=== PATIENT | male | born 1970 | race Caucasian/White ===

== ENCOUNTER 2018-09-29 08:58 | Emergency (ER) | payer OTHER ==
[2018-09-29] MEDS ORDERED: SODIUM CHLORIDE 0.9% 1,000 ML IV ONE ×2 (09:09→10:41)
[2018-09-29] MEDS ORDERED: DEXAMETHASONE 10 MG/ML VIAL IVP STA (09:09)
[2018-09-29] MEDS ORDERED: MECLIZINE 12.5 MG TABLET PO STA (09:09)
--- NOTE | 2018-09-29 09:11 | ED Physician Documentation ---
History of Present Illness - Stated complaint Stated Complaint: VERTIGO - Chief complaint Chief Complaint: Neuro - History obtained from History obtained from: Patient - History of Present Illness Timing: Today - Additonal information Additional information: 47-year-old male was getting ready for his usual day of work when he developed acute dizziness and nausea. He has drank some Crystal light when this happened and despite this he vomited everything that he drank. He did try to go to work noted at work that he was to the dizzy to work and has persistence of dizziness and nausea. He eventually called the ambulance. He was up feeling ill prior to this and denies any current illness. He does state that he last week had a URI which she feels has resolved completely. Review of Systems Constitutional: reports: Fatigue. denies: Fever, Chills Eyes: denies: Decreased vision Ears: denies: Ear pain Nose: denies: Rhinorrhea / runny nose, Congestion Throat: denies: Sore throat Cardiac: denies: Chest pain / pressure, Palpitations Respiratory: denies: Dyspnea, Cough GI: reports: Nausea, Vomiting. denies: Abdominal Pain : denies: Dysuria, Frequency Skin: denies: Rash, Lesions Musculoskeletal: denies: Neck pain, Back pain, Extremity pain Neurologic: reports: Other (dizziness). denies: Generalized weakness, Focal weakness, Numbness, Difficulty speaking, Headache, Head injury, LOC PD PAST MEDICAL HISTORY - Present Medications Home Medications: Ambulatory Orders Medication Instructions Recorded Confirmed Meclizine HCl [Motion Sickness 25 mg PO Q6HR PRN #20 tablet 09/29/18 Relief] - Allergies Allergies/Adverse Reactions: Allergies Allergy/AdvReac Type Severity Reaction Status Date / Time No Known Drug Allergies Allergy Verified 09/29/18 09:07 PD ED PE NORMAL - Vitals Vital signs reviewed: Yes (hypertensive ) - General General: Alert and oriented X 3, Well developed/nourished - HEENT HEENT: Atraumatic, PERRL, EOMI, Ears normal, Other (dry mucous membranes. There are 2 beats of nystagmus bilaterally to lateral gaze) - Neck Neck: Supple, no meningeal sign, No bony TTP - Cardiac Cardiac: RRR, No murmur - Respiratory Respiratory: No respiratory distress, Clear bilaterally - Abdomen Abdomen: Soft, Non tender - Back Back: No CVA TTP, No spinal TTP - Derm Derm: Normal color, Warm and dry, No rash - Extremities Extremities: No deformity, No edema - Neuro Neuro: Alert and oriented X 3, rn bone marrow transplant 2-12 intact, No motor deficit, No sensory deficit, Normal speech Eye Opening: Spontaneous Motor: Obeys Commands Verbal: Oriented GCS Score: 15 - Psych Psych: Normal mood, Normal affect Results - Vitals Vitals: Vital Signs - 24 hr 09/29/18 09/29/18 09:02 10:44 Temperature 35.8 C L Heart Rate 86 64 Respiratory 14 16 Rate Blood Pressure 135/89 H 131/69 H O2 Saturation 95 95 Oxygen O2 Source Room air - EKG (time done) 0909 Rate: Rate (enter#) (77) Rhythm: NSR Ischemia: Q waves Compare to prior EKG: Old EKG unavailable Computer interpretation: Agree with computer - Labs Labs: Laboratory Tests 09/29/18 09/29/18 09/29/18 09:19 09:19 09:19 WBC 10.9 H RBC 4.76 Hgb 13.6 L Hct 40.6 L MCV 85.3 MCH 28.6 MCHC 33.5 RDW 14.9 Plt Count 208 MPV 8.4 Neut # (Auto) 8.5 H Lymph # (Auto) 1.6 [place] # (Auto) 0.5 Eos # (Auto) 0.1 Baso # (Auto) 0.0 Absolute Nucleated RBC 0.00 Nucleated RBC % 0.0 Sodium 135 Potassium 3.8 Chloride 103 Carbon Dioxide 23 Anion Gap 9.0 BUN 13 Creatinine 0.8 Estimated GFR (MDRD) 103 Glucose 163 H Calcium 8.6 Total Bilirubin 0.9 AST 21 ALT 20 Alkaline Phosphatase 44 Troponin I < 0.04 Total Protein 7.0 Albumin 4.0 Globulin 3.0 Albumin/Globulin Ratio 1.3 Lipase 31 Urine Color Urine Clarity Urine pH Ur Specific [place] Urine Protein Urine Glucose (UA) Urine Ketones Urine Occult Blood Urine Nitrite Urine Bilirubin Urine Urobilinogen Ur Leukocyte Esterase Ur Microscopic Review Urine Culture Comments 09/29/18 12:15 WBC RBC Hgb Hct MCV MCH MCHC RDW Plt Count MPV Neut # (Auto) Lymph # (Auto) [place] # (Auto) Eos # (Auto) Baso # (Auto) Absolute Nucleated RBC Nucleated RBC % Sodium Potassium Chloride Carbon Dioxide Anion Gap BUN Creatinine Estimated GFR (MDRD) Glucose Calcium Total Bilirubin AST ALT Alkaline Phosphatase Troponin I Total Protein Albumin Globulin Albumin/Globulin Ratio Lipase Urine Color YELLOW Urine Clarity CLEAR Urine pH 6.5 Ur Specific [place] 1.015 Urine Protein NEGATIVE Urine Glucose (UA) NEGATIVE Urine Ketones 15 H Urine Occult Blood SMALL H Urine Nitrite NEGATIVE Urine Bilirubin NEGATIVE Urine Urobilinogen 0.2 (NORMAL) Ur Leukocyte Esterase NEGATIVE Ur Microscopic Review INDICATED Urine Culture Comments Not Reportable Procedures - IVC sono (time) 0908 Bedside IVC sono: IVC measures (cm) (0.87), IVC collapsed c insp (cm) (complete), Dehydration (est 1-2 liter deficit) PD MEDICAL DECISION MAKING - ED course Complexity details: reviewed results, re-evaluated patient, considered differential, d/w patient ED course: 47-year-old male with acute dizziness and lightheadedness is found to be dehydrated on interrogation of the inferior vena cava he also has nystagmus on lateral viewing consistent with acute labyrinthitis. Here in the emerge department IV is begun is given intravenous saline Decadron and oral meclizine. The patient has improvement with treatment. Departure - Departure Disposition: 01 Home, Self Care Clinical Impression: Dehydration Labyrinthitis Qualifiers: Laterality: bilateral Qualified Code(s): H83.03 - Labyrinthitis, bilateral Condition: Stable Instructions: ED Dehydration, ED Labyrinthitis Follow-Up: Servando Segura MD [Primary Care Provider] - Prescriptions: Meclizine HCl [Motion Sickness Relief] 25 mg PO Q6HR PRN #20 tablet PRN Reason: Dizziness
[2018-09-29 09:32] LABS: BASOPHILS % (AUTO) 0.4 %; EOSINOPHILS # (AUTO) 0.1 10^3/uL (0.0-0.7); HGB - HEMOGLOBIN 13.6 g/dL (14.0-18.0); LYMPHOCYTES # (AUTO) 1.6 10^3/uL (1.5-3.5); MEAN CORPUSCULAR HEMOGLOBIN 28.6 pg (27.0-31.0); MEAN CORPUSCULAR HGB CONC 33.5 g/dL (32.0-36.0); MEAN CORPUSCULAR VOLUME 85.3 fL (80.0-94.0); MEAN PLATELET VOLUME 8.4 fL (7.4-11.4); MONOCYTES # (AUTO) 0.5 10^3/uL (0.0-1.0); MONOCYTES % (AUTO) 4.9 %; NEUTROPHILS # (AUTO) 8.5 10^3/uL (1.5-6.6); NEUTROPHILS % (AUTO) 78.7 %; PLT - PLATELET COUNT 208 10^3/uL (130-450); RED BLOOD COUNT 4.76 10^6/uL (4.70-6.10); RED CELL DISTRIBUTION WIDTH 14.9 % (12.0-15.0); WHITE BLOOD COUNT 10.9 x10^3/uL (4.8-10.8)
[2018-09-29 09:41] LABS: ALBUMIN/GLOBULIN RATIO 1.3 (1.0-2.2); BILIRUBIN,TOTAL 0.9 mg/dL (0.2-1.0); CALCIUM 8.6 mg/dL (8.5-10.3); CREATININE 0.8 mg/dL (0.6-1.2)
[2018-09-29 12:27] LABS: BILIRUBIN,URINE NEGATIVE (NEGATIVE); GLUCOSE, URINE (UA) NEGATIVE (NEGATIVE); KETONES,URINE (UA) 15 mg/dL (NEGATIVE); LEUKOCYTE ESTERASE, URINE NEGATIVE (NEGATIVE); NITRITE,URINE NEGATIVE (NEGATIVE); OCCULT BLOOD,URINE SMALL (NEGATIVE); PH,URINE 6.5 PH (5.0-7.5); PROTEIN,URINE NEGATIVE (NEGATIVE); UROBILINOGEN,URINE 0.2 (NORMAL) E.U./dL (NORMAL)
[2018-09-29 12:31] LABS: CLARITY,URINE CLEAR (CLEAR)
[2018-09-29 12:43] LABS: BACTERIA,URINE None Seen /HPF (None Seen); RBC,URINE 0-5 /HPF (0-5); SQUAMOUS EPITHELIAL CELL,UR RARE Squamous (<= Few)
[2018-09-29 12:51] VITALS: BP 126/69
== END 2018-09-29 12:51 | disposition home or self-care (01) ==
LOC: EDUNIT# → ED 08:58
DX: E86.0 Dehydration (principal); H83.03 Labyrinthitis, bilateral; R94.31 Abnormal electrocardiogram [ECG] [EKG]
CPT/HCPCS: 36415; 80053; 81001; 83690; 84484; 85025; 93005; 96361; 96374; 99283; 99284; A9270; 81003; 87086

== ENCOUNTER 2023-10-20 20:23 | Emergency (ER) | payer OTHER ==
[2023-10-20 20:58] VITALS: BP 128/70; O2SAT 99
--- NOTE | 2023-10-20 21:25 | XRAY Report ---
PROCEDURE: Wrist 3+V RT INDICATIONS: PAIN+TENDERNESS + SWELLING R WRIST/HAND TECHNIQUE: 3 views of the wrist were acquired. COMPARISON: None. FINDINGS: Bones: No fractures or dislocations. No suspicious bony lesions. Soft tissues: No suspicious soft tissue calcifications or masses. IMPRESSION: No acute bony abnormality. If there is continued clinical concern for pathology or occult fracture, consider follow-up imaging w ith repeat radiographs in 10-14 days and possible advanced imaging (CT, MRI, bone scan) if symptoms p ersist. Reviewed by: Omid Lewis MD on 10/20/2023 9:24 PM PST Approved by: Omid Lewis MD on 10/20/2023 9:24 PM PST Station ID: [id number]
[2023-10-20] MEDS: ACETAMINOPHEN 325 MG TABLET PO STA (22:12)
[2023-10-20] MEDS: oxyCODONE 5 MG TABLET PO STA (22:13)
[2023-10-20] MEDS: ONDANSETRON ODT 4 MG TABLET TL STA (22:19)
--- NOTE | 2023-10-20 22:21 | ED Physician Documentation ---
History of Present Illness - Stated complaint Stated Complaint: R WRIST PX - Chief complaint Chief Complaint: Ext Problem - Additonal information Additional information: 52-year-old male presents emergency department for severe right wrist right hand pain. 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 He said that he got about 8 of them and he needed to do multiple repetitive arm movements to get the box printing machine operator knife to cut through the thick mats. He said there is no injuries while doing this. The next day he woke up feeling overall pretty fine and started exper iencing worsening right wrist pain throughout the day. Tonight when trying to wind down patient started experiencing severe worsening right wrist painTo the point where it caused him to vomit. He is taking Tylenol and ibuprofen nothing seems to be helping with the pain. He is not noticing increased right hand swelling and pain with flexion or extension of the wrist or the fingers and some numbness and tingling to the fingertips now. PD PAST MEDICAL HISTORY - Past Medical History Past Medical History: No Cardiovascular: None Respiratory: None Neuro: None Endocrine/Autoimmune: None GI: None : None HEENT: None Psych: None Musculoskeletal: None Derm: None - Past Surgical History Past Surgical History: Yes Ortho: ACL reconstruction - Present Medications Home Medications: Ambulatory Orders Medication Instructions Recorded Confirmed Oxycodone HCl/Acetaminophen 1 each PO Q6HR PRN #12 tablet 10/20/23 [Percocet 5-325 mg Tablet] predniSONE [Deltasone] 40 mg PO DAILY 4 Days #8 tablet 10/20/23 - Allergies Allergies/Adverse Reactions: Allergies Allergy/AdvReac Type Severity Reaction Status Date / Time No Known Drug Allergies Allergy Verified 10/20/23 20:46 - Social History Does the pt smoke?: Yes Smoking Status: Current every day smoker Does the pt drink ETOH?: Yes Does the pt have substance abuse?: No - Immunizations Immunizations are current?: Yes - POLST Patient has POLST: No PD ED PE NORMAL - Vitals Vital signs reviewed: Yes - General General: Alert and oriented X 3, Well developed/nourished, Other (pt wincing in pain) - Derm Derm: Normal color, Warm and dry, No rash - Extremities Extremities: No deformity, Other (Flexion and extension of the wrist tenderness with palpation to the volar and palmar aspect of the wrist. No popping clicking sensation of the wrist. No swelling of the right arm compartment.) - Psych Psych: Normal mood Results - Vitals Vitals: Vital Signs - 24 hr 10/20/23 20:40 Temperature 36.6 C Heart Rate 96 Respiratory 16 Rate Blood Pressure 128/70 O2 Saturation 99 Oxygen O2 Source Room air - Rads (name of study) Right hand x-ray Relevant Findings:: Final report received, EMP independent interpretation of test, Other (No acute fractures or dislocations or other abnormalities of the right hand.) PD Medical Decision Making - ED course ED course: Patient comes in with severe right hand/right wrist pain. X-rays do not reveal any fractures dislocation or other acute abnormalities or findings. I believe that the pain he is experiencing is from tendinitis from overuse injury. He was given Tylenol oxycodone ibuprofen here in the emergency department and reported that the pain had significantly improved. We also placed him in a Velcro splint to help with resting the right wrist as well as a steroid taper to help with the significant inflammation. He is told to rest it elevated ice it for the next 3 to 4 days and follow-up with primary care provider if pain does not continue to improve if it gets any worse to come back to the emergency department. At this time he is safe for discharge no further emergent workup indicated at this time. Departure - Departure Disposition: 01 Home, Self Care Clinical Impression: Wrist tendonitis, Overuse injury Condition: Good Instructions: Tendonitis and Tenosynovitis Prescriptions: Oxycodone HCl/Acetaminophen [Percocet 5-325 mg Tablet] 1 each PO Q6HR PRN #12 tablet PRN Reason: Pain >8 predniSONE [Deltasone] 40 mg PO DAILY 4 Days #8 tablet Comments: Thank you for trusting us with your care. I believe that the injury you are experiencing in your right hand is most likely due to an overuse injury. We are sending you home with some prednisone to help with the inflammation and swelling as well as some Percocet. Keep the wrist splint on to help with resting the tendon that is most likely overuse and inflamed right now. Apply ice 20 minutes at a time 1 hour off frequently throughout the day to help with inflammation and swelling make sure that you are keeping it elevated frequently. Follow-up with your primary care provider for further evaluation early next week to make sure that it is not getting worse. Make sure that you are taking her splint off a couple times at the day to do some gentle range of motion exercises to the wrist. I would stop wearing the splint after 3 days and then after that you can wear as needed for any pain and swelling. I am prescribing a short course of narcotic pain medication for you. These are potentially dangerous and addictive medications that should be used carefully. These medications may constipate you. Take an ioaf-vdq-bnfwuoi stool softener (docusate) twice daily with plenty of water while taking these medications. If you go 24 hours without a bowel movement, take jjqs-[id number]-fwatlvj miralax, per package instructions. Do not drink or drive while taking these medications. If you received narcotic or sedating medications while in the emergency department, do not drive for 24 hours. Store this medication in a safe, secure place and out of reach of children. It is a violation of federal law to give or sell this medication to another person or to use in a manner other than prescribed. The ED will not refill narcotic prescriptions, including prescriptions lost or stolen. To dispose of unwanted medications: 1. [facility] [address] in [place] has a medication drop box. They accept prescription medications (in pill form) Wednesday through Wednesday 9:00 a.m. to 5:00 p.m. 2. [facility] accepts prescription medications (in pill form only) for disposal year round. Call for more information. 3. Contact the [facility] for the next [facility] sponsored prescription drug collection event. , [phone], or [phone]; Note that many narcotic pain relievers also contain Tylenol/acetaminophen. Please ensure that your total dose of acetaminophen from all sources does not exceed 3 g (3000 mg) per day. Forms: PCP List Discharge Date/Time: 10/20/23 23:02
[2023-10-20] MEDS: predniSONE 20 MG TABLET PO STA (22:45)
[2023-10-20] MEDS: oxyCODONE/ACET 5/325 Prepack 4 PO STA (22:45)
== END 2023-10-20 23:02 | disposition home or self-care (01) ==
LOC: ED 20:23
DX: M77.8 Other enthesopathies, not elsewhere classified (principal); F17.200 Nicotine dependence, unspecified, uncomplicated
CPT/HCPCS: 73110; 99283; 99284; A9270; J7512; Q0162

== ENCOUNTER 2023-10-25 07:11 | Emergency (ER) | payer OTHER ==
--- NOTE | 2023-10-25 07:54 | ED Physician Documentation ---
PD HPI UPPER EXT INJURY - Stated complaint Stated Complaint: R HAND PX - Chief complaint Chief Complaint: Trauma Ext - History obtained from History obtained from: Patient - History of Present Illness Location: Right, Hand Type of injury: Other (cutting rubber floor tile w knife 8 days ago. Wednesday noted significant pain and swelling, seen here. Dx tendonitis. Gave percocet, prednisone. now pain much worse, swelling. pain especially 4th/5th fingers. occ tingling) Where injury occurred: Home Timing - onset: Other (pain for 5 days) Pain level max: 10 Pain level now: 7 Improved by: Rest Worsened by: Moving, Palpating Associated symptoms: Tingling Recently seen: Emergency Dept - Treatment prior to arrival Treatment prior to arrival: Taking percocet and prednisone, given brace. now so swollen brace won't fit PD PAST MEDICAL HISTORY - Past Medical History Cardiovascular: None Respiratory: None Neuro: None Endocrine/Autoimmune: None GI: None : None HEENT: None Psych: None Musculoskeletal: None Derm: None - Past Surgical History Past Surgical History: Yes Ortho: ACL reconstruction - Present Medications Home Medications: Ambulatory Orders Medication Instructions Recorded Confirmed Oxycodone HCl/Acetaminophen 1 each PO Q6HR PRN #12 tablet 10/20/23 10/25/23 [Percocet 5-325 mg Tablet] Oxycodone HCl/Acetaminophen 1 - 2 each PO Q6H PRN #14 tablet 10/25/23 [Percocet 5-325 mg Tablet] - Allergies Allergies/Adverse Reactions: Allergies Allergy/AdvReac Type Severity Reaction Status Date / Time No Known Drug Allergies Allergy Verified 10/20/23 20:46 - Social History Does the pt smoke?: Yes Smoking Status: Current every day smoker Does the pt drink ETOH?: Yes Does the pt have substance abuse?: No - Immunizations Immunizations are current?: Yes - POLST Patient has POLST: No PD ED PE NORMAL - General General: Alert and oriented X 3 - Cardiac Cardiac: RRR, No murmur - Respiratory Respiratory: No respiratory distress - Extremities Extremities: Other (right hand diffusely swollen. extremely ttp over carpal tunnel and prox ventral wrist. all fingers swollen. 4th/5th digits unable to extend, held in passive flexion. ttp along flexor side. CR<2 sec. sensation normal. only able to form claw with all fingers. thumb swollen but decent rom) Results - Vitals Vitals: Vital Signs - 24 hr 10/25/23 07:17 Temperature 36.6 C Heart Rate 101 H Respiratory 16 Rate Blood Pressure 169/87 H O2 Saturation 98 Oxygen O2 Source Room air PD Medical Decision Making - ED course Complexity details: considered differential, d/w digital marketing consultant ED course: Patient presents with worsening hand swelling in the setting of repetitive use injury. He was treated for presumed tendinitis and is more swollen. He was advised the other day to actually range his hand through range of motion which may be contributing to this worsening. Though he does have some pain with passive range of motion due to the swelling, he does not have erythema or significant tenderness to indicate an infectious flexor tenosynovitis. More likely an inflammatory etiology. He does not have numbness or delayed cap refill to indicate that this is a compartment syndrome. I discussed the case with Dr. Camacho, on for orthopedics here at [facility]. He recommended placing the patient in a volar splint with strict elevation precautions, he will see the patient as an outpatient in the next 48 to 72 hours which seems reasonable. P atient is quite reliable return to the emergency department if worse. Procedure: Volar splint application. Ortho-Glass was used to form a well-padded volar splint. He tolerated this well would be splinted in a neutral position. He has rigged a william system at home to do strict elevation of his hand. I counseled him that just above the heart is enough. He will use the splint without removing it and follow-up with Ortho this week. I believe he will get better with aggressive rest and elevation. - Consults Consults: Discussed case with (Dr. Camacho, ortho surgery) Departure - Departure Clinical Impression: Tenosynovitis of right hand Condition: Good Instructions: ED Splint Care Fiberglass, Compartment Syndrome Follow-Up: Gael Camacho MD [Provider Admit Priv/Credential] - Within 3 Days ( ED lily bowman, discussed with Dr. Barbosa at time of his presentation) Prescriptions: Oxycodone HCl/Acetaminophen [Percocet 5-325 mg Tablet] 1 - 2 each PO Q6H PRN #14 tablet PRN Reason: pain Comments: Call orthopedics Dr. Camacho, to be seen in the next 2 to 3 days. Strict elevation of right hand. Hrnv-ckv-sadulmy ibuprofen. Take Percocet for pain. Return to ER increasing pain numbness tingling any concerns. Forms: PCP List
[2023-10-25] MEDS: oxyCODONE 5 MG TABLET PO STA (08:17)
[2023-10-25 09:32] VITALS: BP 152/84; O2SAT 100
== END 2023-10-25 09:30 | disposition home or self-care (01) ==
LOC: ED 07:11
DX: M65.9 Synovitis and tenosynovitis, unspecified (principal); X50.3XXA Overexertion from repetitive movements, initial encounter; Y93.H3 Activity, building and construction; Y92.009 Unspecified place in unspecified non-institutional (private) residence as the place of occurrence of the external cause; F17.200 Nicotine dependence, unspecified, uncomplicated
CPT/HCPCS: 99282; 99284; A9270

== ENCOUNTER 2023-10-28 08:00 | Outpatient (CLI) | payer OTHER ==
--- NOTE | 2023-10-28 13:48 | XRAY Report ---
PROCEDURE: Hand 3 View RT INDICATIONS: RIGHT HAND PAIN TECHNIQUE: 3 views of the hand acquired. COMPARISON: Right wrist radiographs 10/20/2023. FINDINGS: Bones: No acute fractures or dislocations. No suspicious bony lesions. Soft tissues: No suspicious soft tissue calcifications. Mild soft tissue edema is seen at the dorsu m of the hand. IMPRESSION: No acute osseous abnormality. Mild nonspecific soft tissue edema. If symptoms persist or there is con tinued clinical concern, further evaluation with MRI or CT may be helpful. Reviewed by: Andres Lynn MD on 10/28/2023 1:47 PM PST Approved by: Andres Lynn MD on 10/28/2023 1:47 PM [facility] Station ID: [id number]
--- NOTE | 2023-10-28 13:50 | XRAY Report ---
PROCEDURE: Wrist 4 View RT INDICATIONS: RIGHT WRIST PAIN TECHNIQUE: 3 views of the wrist were acquired. COMPARISON: Right wrist radiographs 10/20/2023 FINDINGS: Bones: No acute fractures or dislocations. No suspicious bony lesions. Soft tissues: No suspicious soft tissue calcifications. Nonspecific soft tissue edema is seen at t he dorsum of the wrist and hand. IMPRESSION: No acute osseous abnormality. Nonspecific soft tissue edema. If symptoms persist or there is continue d clinical concern, further evaluation with MRI or CT may be helpful. Reviewed by: Andres Lynn MD on 10/28/2023 1:49 PM PST Approved by: Andres Lynn MD on 10/28/2023 1:49 PM [facility] Station ID: [id number]
== END 2023-10-28 23:59 | disposition home or self-care (01) ==
LOC: DI.WOS 08:00
PROVIDERS: ATTEND Physician Assistant Surgical
DX: M79.641 Pain in right hand (principal); M25.531 Pain in right wrist

== ENCOUNTER 2023-11-17 15:39 | Outpatient (CLI) | payer OTHER ==
--- NOTE | 2023-11-18 14:37 | MRI Report ---
PROCEDURE: Hand RT WO INDICATIONS: R HAND PAIN TECHNIQUE: Noncontrast coronal T1 spin echo and T2 fast spin echo with fat saturation, axial proton density fast spin echo and T2 fast spin echo with fat saturation, sagittal T1 spin echo and STIR through the hand and fingers. COMPARISON: Right wrist radiograph dated 10/28/2023. FINDINGS: Image quality: Excellent. Bones: The bones are normally aligned. Edema involving posterior calcaneal is seen without fracture line. Mild right hand and wrist joint osteoarthritic changes are seen. Nonspecific subcortical T2 hyp erintense signal involving first and third metacarpal heads are seen. No intra-osseous lesions. Interphalangeal joint(s): The accessory and proper collateral ligaments appear intact. The volar pl ate demonstrates normal morphology. The extensor central slips appear intact on sagittal images. Metacarpophalangeal joint(s): The accessory and proper collateral ligaments appear intact, as well a s the volar plate and adjacent deep transverse metacarpal ligaments. The sagittal bands of the exten sor payne appear normal. Extensor apparatus: The central slips insert normally on the middle phalangeal base. The conjoint a nd terminal tendons insert normally on the distal phalangeal bases. More proximal portions of the ex tensor tendons also appear normal. Flexor apparatus: There is significant soft tissue edema within the carpal tunnel with extensive shari a and fluid surrounding the flexor tendons extending to the level of metacarpal head and proximal pha langes suggestive of extensive tenosynovitis and tenosynovitis. No evidence of flexor tendon rupture. All annular and cruciform pulleys appear intact. Soft tissues: Visualized muscles demonstrate normal bulk and internal signal. No intramuscular mass es identified. No ganglion cysts. IMPRESSION: 1. Significant synovitis within the carpal tunnel with extensive tenosynovitis involving flexor tendo ns extending from the wrist level to the level of proximal phalanges. No tendon rupture. Extensor ten dons are intact. 2. 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 Edema involving the hook of hamate without discret e fracture line. Subcortical T2 hyperintense signal involving first and third metacarpal head which c ould represent subcortical cysts versus erosion secondary to inflammatory arthropathy. No fracture or dislocation. 3. No gross right hand muscle signal abnormalities. Reviewed by: Alonso Up MD on 11/18/2023 2:36 PM PDT Approved by: Alonso Up MD on 11/18/2023 2:36 PM PDT Station ID: [id number]
== END 2023-11-17 15:40 | disposition home or self-care (01) ==
LOC: DI 15:39
PROVIDERS: ATTEND Nurse Practitioner Family
DX: M65.9 Synovitis and tenosynovitis, unspecified (principal); M19.041 Primary osteoarthritis, right hand; M19.031 Primary osteoarthritis, right wrist; R93.6 Abnormal findings on diagnostic imaging of limbs